=== PATIENT | female | born 1960 | race Caucasian/White ===

== ENCOUNTER 2019-06-03 21:52 | Emergency (ER) | payer BC ==
[2019-06-03] MEDS ORDERED: ASPIRIN 81 MG CHEWABLE TABLET PO ONE (21:58)
--- NOTE | 2019-06-03 22:02 | Emergency Department Record ---
History of Present Illness - General Chief Complaint: Chest Pain Stated Complaint: CHEST PAIN Time Seen by Provider: 06/03/19 21:55 Source: Patient Mode of Arrival: Ambulatory Limitations: No limitations - History of Present Illness Initial Comments: 59 yo female presents to ED for evaluation of chest discomfort that began approximately 1 hour ago. Patient describes her discomfort as "heaviness", radiates to the left shoulder. Patient reports that her symptoms began at rest, reports similar symptoms approximately 10 days ago. Patient denies shortness of breath, fevers, chills, productive cough, or recent illness. Patient denies history of DVT/PE, denies calf pain or swelling. Patient does report a history of Factor V Leiden and NIDDM. Patient denies previous smoking history, denies previous heart problems. MD Complaint: Chest pain Onset/Timin -: Hour(s) Onset: During rest Pain Location: Left chest Pain Radiation: Other (Shoulder) Severity: Moderate Severity scale (1-10): 5 Quality: Heaviness Consistency: Constant Improves With: Nothing Worsens With: Nothing Treatments Prior to Arrival: None - Related Data On Oral Contraceptives: No Home Medications Medication Instructions Recorded Confirmed Last Taken Atorvastatin Calcium 10 mg PO DAILY 06/03/19 06/03/19 Unknown Diclofenac Sodium 1 applic TOP DAILY 06/03/19 06/03/19 Unknown Lisinopril/Hydrochlorothiazide 1 tab PO DAILY 06/03/19 06/03/19 Unknown [Lisinopril-Hctz 10-12.5 mg Tab] Metformin HCl [Metformin HCl ER] 500 mg PO DAILY 06/03/19 06/03/19 Unknown Prednisone [Prednisone 10Mg] 20 mg PO DAILY 06/03/19 06/03/19 Unknown Allergies Allergy/AdvReac Type Severity Reaction Status Date / Time No Known Allergies Allergy PT UNSURE Verified 06/03/19 22:06 OF REACTION Review of Systems Constitutional: Denies: Chills, Fever, Malaise, Night sweats Eyes: Denies: Eye discharge, Eye pain ENT: Denies: Congestion, Ear pain, Epistaxis Respiratory: Denies: Cough, Dyspnea Cardiovascular: Reports: Chest pain. Denies: Dyspnea on exertion Endocrine: Denies: Fatigue, Heat or cold intolerance Gastrointestinal: Denies: Abdominal pain, Nausea, Vomiting Genitourinary: Denies: Incontinence, Retention Musculoskeletal: Denies: Arthralgia, Back pain Skin: Denies: Bruising, Change in color Neurological: Denies: Abnormal gait, Confusion, Headache, Seizure Psychiatric: Denies: Anxiety Hematological/Lymphatic: Denies: Anemia, Blood Clots Physical Exam - General General Appearance: Alert, Oriented x3, Cooperative, Mild distress Limitations: No limitations - Head Head exam: Atraumatic, Normocephalic, Normal inspection Head exam detail: negative: Abrasion, Contusion, De La Torre's sign, General tenderness, Hematoma, Laceration - Eye Eye exam: Normal appearance. negative: Conjunctival injection, Periorbital swelling, Periorbital tenderness, Scleral icterus - ENT Ear exam: negative: Auricular hematoma, Auricular trauma Nasal Exam: negative: Active bleeding, Discharge, Dried blood, Foreign body Mouth exam: negative: Drooling, Laceration, Muffled voice, Tongue elevation - Neck Neck exam: Normal inspection. negative: Meningismus, Tenderness - Respiratory Respiratory exam: Normal lung sounds bilaterally. negative: Rales, Respiratory distress, Rhonchi, Stridor - Cardiovascular Cardiovascular Exam: Regular rate, Normal rhythm, Normal heart sounds - GI/Abdominal GI/Abdominal exam: Soft. negative: Rebound, Rigid, Tenderness - Rectal Rectal exam: Deferred - exam: Deferred - Extremities Extremities exam: Normal inspection. negative: Pedal edema, Tenderness - Back Back exam: Denies: CVA tenderness (R), CVA tenderness (L) - Neurological Neurological exam: Alert, Normal gait, Oriented X3 - Psychiatric Psychiatric exam: Flat affect - Skin Skin exam: Normal color. negative: Abrasion Type of lesion: negative: abrasion Course - Reevaluation(s) Reevaluation #1: 06/03/19 22:04 EKG: NSR 82 Normal axis, normal intervals Mild ST depression V4-V5 Reevaluation #2: 06/03/19 23:01 Laboratory studies were reviewed and appear grossly unremarkable for an acute process except for the following: D-Dimer 0.66 CTA chest ordered for further evaluation to exclude PE as the etiology of the patient's symptoms. Reevaluation #3: 06/03/19 23:42 CTA Chest: No evidence for pulmonary emboli HEART Score was calculated for the patient, patient scores a 4 with use of decision tool. As a result, inpatient cardiac evaluation is recommended. [facility] 1-call was contacted for transfer. Medical Decision Making - Lab Data Result diagrams: 06/03/19 21:59 06/03/19 21:59 Disposition Disposition: Transfer Clinical Impression: Chest pain Qualifiers: Chest pain type: unspecified Qualified Code(s): R07.9 - Chest pain, unspecified Disposition: Acute Care Hospital Transfer Transfer To: [facility] Reason For Transfer: Cardiac evaluation Accepting Physician: Shae Time Discussed w/Accepting Physician: 00:42 Condition: (2) Stable Forms: Patient Portal Access Time of Disposition: 00:42 Quality - Quality Measures Quality Measures: N/A - Blood Pressure Screening Does Patient Have Any of the Following: Active Dx of HTN Blood Pressure Classification: Hypertensive Reading Systolic Measurement: 187 Diastolic Measurement: 103 Screening for High Blood Pressure: Patient Exclusion, Hx of HTN [[id number]]
[2019-06-03 22:09] LABS: HEMATOCRIT 43.6 % (35.0-47.0); HEMOGLOBIN 14.8 gm/dl (11.6-16.0); MEAN CELL VOLUME 90.5 fl (81-97); MEAN CORPUSCULAR HEMOGLOBIN 30.7 pg (27-33); MEAN CORPUSCULAR HGB CONC 33.9 g/dl (32-36); MEAN PLATELET VOLUME 9.3 fl (7.4-10.4); PLATELET COUNT 272 K/uL (130-400); RED BLOOD COUNT 4.82 M/uL (3.80-5.40); RED CELL DISTRIBUTION WIDTH 12.8 % (11.5-14.5); WHITE BLOOD COUNT W/O DIFF 8.8 K/uL (4.2-12.2)
[2019-06-03 22:19] LABS: BLOOD UREA NITROGEN 13 mg/dL (8-23); CREATININE 0.7 mg/dL (0.5-0.9); EST GLOMERULAR FILTRATION RATE > 60 mL/min
[2019-06-03 22:20] LABS: TOTAL PROTEIN 7.9 g/dL (6.6-8.7)
[2019-06-03 22:22] LABS: GLUCOSE,RANDOM 161 mg/dL (74-109)
[2019-06-03 22:25] LABS: ALB/GLOB RATIO 1.5 (1.1-1.8); ALBUMIN 4.7 g/dL (4.0-5.0); ALKALINE PHOSPHATASE 84 U/L (35-104); ALT/SGPT 32 U/L (<33); AST/SGOT 25 U/L (10.0-35.0)
[2019-06-03] MEDS ORDERED: KETOROLAC 30 MG/ML VIAL IVP ONE (22:55)
[2019-06-03 23:00] LABS: PLATELET ESTIMATE NORMAL (NORMAL)
--- NOTE | 2019-06-03 23:38 | CT ANGIOGRAM REPORT ---
EXAMINATION: CT Angiography of the Thorax EXAM DATE: 06/03/2019 11:24 PM TECHNIQUE: Standard protocol CT angiogram images were obtained through the chest following the admini stration of intravenous contrast. Coronal and sagittal MIP 3-D reformations were performed. IV Contrast: The amount and type of contrast are recorded in the medical record. INDICATION: Chest pain. COMPARISON: None ENCOUNTER: Not applicable FINDINGS: Pulmonary Artery: No pulmonary embolism is present. Aorta: No thoracic aortic aneurysm or dissection is present. Right Heart Strain: None. Heart : There is no pericardial effusion. Ginette and Mediastinum: No lymphadenopathy. Lung Parenchyma: Normal. Central Airways: Normal. Pleural Effusion: None. Upper Abdomen: Unremarkable. Musculoskeletal and Chest Wall: Unremarkable. IMPRESSION: No pulmonary embolism or other acute pulmonary process. Dictated by: Devonte Allen MD on 06/03/2019 11:31 PM. .
== END 2019-06-04 01:16 | disposition short-term general hospital (02) ==
LOC: ER 21:52
DX: R07.89 Other chest pain (principal); M25.512 Pain in left shoulder; I10 Essential (primary) hypertension; E11.9 Type 2 diabetes mellitus without complications; Z79.84 Long term (current) use of oral hypoglycemic drugs
CPT/HCPCS: 71275; 80053; 84484; 85027; 85379; 93005; 93010; 96374; 99285; J1885